=== PATIENT | female | born 1995 | race African-American/Black ===

== ENCOUNTER 2017-01-18 13:09 | Emergency (ER) | payer MEDICAID, OTHER ==
[2017-01-18] MEDS ORDERED: TYLENOL #3 PO ONE ×2 (18:53→18:58)
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
[2017-01-18] MEDS ORDERED: FLEXERIL ONE (18:55)
[2017-01-18] MEDS ORDERED: FLEXERIL PO ONE (18:58)
[2017-01-18 21:17] VITALS: BP 115/74
== END 2017-01-18 19:15 | disposition home or self-care (01) ==
LOC: ED 13:09
DX: O9A.212 Injury, poisoning and certain other consequences of external causes complicating pregnancy, second trimester (principal); S39.012A Strain of muscle, fascia and tendon of lower back, initial encounter; M79.601 Pain in right arm; Z3A.20 20 weeks gestation of pregnancy; K21.9 Gastro-esophageal reflux disease without esophagitis; V89.2XXA Person injured in unspecified motor-vehicle accident, traffic, initial encounter; Y93.89 Activity, other specified; Y99.8 Other external cause status; Y92.89 Other specified places as the place of occurrence of the external cause

== ENCOUNTER 2018-07-17 12:29 | Emergency (ER) | payer SELFPAY ==
[2018-07-17 15:10] VITALS: BP 113/61
--- NOTE | 2018-07-17 16:09 | Emergency Department Report ---
[facility] Chief Complaint: Eye Problems Stated Complaint: LEFT EYE RED,IRRITATION,BLURRY Time Seen by Provider: 07/17/18 15:59 Duration: 2 Days Side: Left Severity: moderate Symptoms: Yes Eye Itching, Yes Eye Redness, Yes Mucous Drainage, No Eye Pain, No Purulent Drainage, No Blurred Vision, No Preceding URI, No H/O Allergic Rhinitis, No Contact Lens Use, No Trauma, No Fever, No Headache ED Review of Systems ROS: Stated complaint: LEFT EYE RED,IRRITATION,BLURRY Other details as noted in HPI Comment: All other systems reviewed and negative ED Past Medical Hx - Past Medical History Hx Hypertension: No Hx Congestive Heart Failure: No Hx Diabetes: No Hx Deep Vein Thrombosis: No Hx GERD: Yes Hx Renal Disease: No Hx Sickle Cell Disease: No Hx Seizures: No Hx Asthma: No Hx COPD: No Hx HIV: No - Surgical History Additional Surgical History: - Social History Smoking Status: Never Smoker Substance Use Type: None - Medications Home Medications: Home Medications Medication Instructions Recorded Confirmed Last Taken Type Tablet 1 tab PO DAILY 11/03/15 01/18/17 01/17/17 20:00 History Acetaminophen [Non-Aspirin Pain 500 mg PO Q6H PRN #12 tablet 01/18/17 Unknown Rx Relief] Gentamicin 0.3% Ophth Soln 2 drops OP Q4H #1 bottle 07/17/18 Unknown Rx Naphazoline HCl/Pheniramine 2 drop OP Q6HR #15 ml 07/17/18 Unknown Rx [Naphcon-A Eye Drops] [facility] Exam - Exam General: Vital signs noted. No distress. Alert and acting appropriately. Eye Exam: Left Injection, Left Chemosis, Left Mucous Discharge, Both EOMI, Neither Abnormal Pupil, Neither Eye Foreign Body, Neither Lid Foreign Body, Neither Purulent Discharge, Neither Fluorescein Uptake, Neither Fluorescein Uptake (slit lamp), Neither Cell/Flare (slit lamp), Neither Corneal Edema, Neither Photophobia HEENT: No Nasal Congestion, No Pharyngeal Erythema Remainder of HEENT: Normal Lungs: Yes Clear Lung Sounds, Yes Good Air Exchange, No Cough, No Nasal Flaring , No Retractions, No Use of Accessory Muscles ED Course Vital Signs 07/17/18 15:06 Temperature 99 F Pulse Rate 88 Respiratory 16 Rate Blood Pressure 113/61 O2 Sat by Pulse 99 Oximetry Critical care attestation.: If time is entered above; I have spent that time in minutes in the direct care of this critically ill patient, excluding procedure time. ED Disposition Clinical Impression: Conjunctivitis Qualifiers: Conjunctivitis type: unspecified Laterality: left Qualified Code(s): H10.9 - Unspecified conjunctivitis Disposition: - TO HOME OR SELFCARE Is pt being admited?: No Does the pt Need Aspirin: No Condition: Stable Instructions: Conjunctivitis (ED) Prescriptions: Gentamicin 0.3% Ophth Soln 2 drops OP Q4H #1 bottle Naphazoline HCl/Pheniramine [Naphcon-A Eye Drops] 2 drop OP Q6HR #15 ml Time of Disposition: 16:09
== END 2018-07-17 16:21 | disposition home or self-care (01) ==
LOC: ED 12:29
DX: H10.9 Unspecified conjunctivitis (principal); K21.9 Gastro-esophageal reflux disease without esophagitis
CPT/HCPCS: 99282

== ENCOUNTER 2019-04-08 22:03 | Emergency (ER) | payer OTHER ==
[2019-04-08 22:18] VITALS: BP 114/63
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
[2019-04-09] MEDS ORDERED: ULTRAM PO ONE (02:55)
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
== END 2019-04-09 04:00 | disposition home or self-care (01) ==
LOC: ED 22:03
DX: S86.912A Strain of unspecified muscle(s) and tendon(s) at lower leg level, left leg, initial encounter (principal); S39.012A Strain of muscle, fascia and tendon of lower back, initial encounter; K21.0 Gastro-esophageal reflux disease with esophagitis; Z79.899 Other long term (current) drug therapy; V43.52XA Car driver injured in collision with other type car in traffic accident, initial encounter; Y93.89 Activity, other specified; Y92.488 Other paved roadways as the place of occurrence of the external cause; Y99.8 Other external cause status
CPT/HCPCS: 72100; 99284

== ENCOUNTER 2019-06-15 17:45 | Emergency (ER) | payer MEDICAID, OTHER ==
[2019-06-15 18:15] VITALS: BP 101/68
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
[2019-06-15] MEDS ORDERED: IBUPROFEN PO ONE (20:56)
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
== END 2019-06-15 21:36 | disposition home or self-care (01) ==
LOC: ED 17:45
DX: S46.911A Strain of unspecified muscle, fascia and tendon at shoulder and upper arm level, right arm, initial encounter (principal); K21.9 Gastro-esophageal reflux disease without esophagitis; Z98.890 Other specified postprocedural states; Z79.899 Other long term (current) drug therapy; V89.2XXA Person injured in unspecified motor-vehicle accident, traffic, initial encounter; Y93.89 Activity, other specified; Y92.488 Other paved roadways as the place of occurrence of the external cause; Y99.8 Other external cause status
CPT/HCPCS: 99284

== ENCOUNTER 2019-08-26 12:38 | Emergency (ER) | payer MEDICAID | END 2019-08-26 13:10 | disposition left against medical advice (07) | LOC: ED 12:38 | DX: M25.572 Pain in left ankle and joints of left foot (principal); Z53.21 Procedure and treatment not carried out due to patient leaving prior to being seen by health care provider ==

== ENCOUNTER 2019-12-07 05:58 | Emergency (ER) | payer MEDICAID ==
[2019-12-07 06:09] VITALS: BP 126/86
--- NOTE | 2019-12-07 06:47 | XRay Report ---
Right ankle, 3 views INDICATION: Pain following fall FINDINGS: The joint space is maintained. There is no fracture or dislocation. No spurring or arthriti c change. No bone lesion or periostitis. No significant abnormality. IMPRESSION: Negative study Signer Name: Zia Beltran MD Signed: 12/07/2019 6:43 AM Workstation Name: [id number]
--- NOTE | 2019-12-07 08:28 | Emergency Department Report ---
ED General Adult HPI - General Chief complaint: Extremity Injury, Lower Stated complaint: FALL/R ANKLE PAIN Time Seen by Provider: 12/07/19 08:16 Source: patient Mode of arrival: Wheelchair Limitations: Physical Limitation - History of Present Illness Initial comments: This is a 24-year-old healthy looking female who presents the ED complaining of right ankle pain status post twisting and tripping on 3 stairs around 1 AM this morning. Patient states she is having pain with applied pressure to that ankle. Patient denies any swelling, redness. Patient states that she is twisted this ankle in the past before.. Patient is ambulatory She denies falling or any head injury at the incident Radiation: non-radiation Severity scale (0 -10): 5 Quality: aching Consistency: constant Improves with: immobilization - Related Data Home Medications Medication Instructions Recorded Confirmed Last Taken Tablet 1 tab PO DAILY 11/03/15 09/12/18 01/17/17 20:00 Previous Rx's Medication Instructions Recorded Last Taken Type Acetaminophen [Non-Aspirin Pain 500 mg PO Q6H PRN #12 tablet 01/18/17 Unknown Rx Relief] Gentamicin 0.3% Ophth Soln 2 drops OP Q4H #1 bottle 07/17/18 Unknown Rx Naphazoline HCl/Pheniramine 2 drop OP Q6HR #15 ml 07/17/18 Unknown Rx [Naphcon-A Eye Drops] Ferrous Sulfate [Feosol 325 MG tab] 325 mg PO BID #60 tablet 09/12/18 Unknown Rx Vit-Fe Fumar-FA [ 1 each PO QDAY #30 tablet 09/12/18 Unknown Rx Vitamin] Cyclobenzaprine [Flexeril] 10 mg PO TID PRN #30 tablet 04/09/19 Unknown Rx Menthol/Camphor [[place] 1 applicatio TP QID PRN #1 tube 04/09/19 Unknown Rx Ointment] Naproxen [Naprosyn TAB] 500 mg PO BID PRN #30 tablet 04/09/19 Unknown Rx Menthol/Camphor [[place] 1 applicatio TP QID PRN #1 tube 06/15/19 Unknown Rx Ointment] Naproxen [Naprosyn] 500 mg PO BID PRN #30 tablet 06/15/19 Unknown Rx predniSONE [Deltasone] 40 mg PO QDAY 5 Days #10 tab 06/15/19 Unknown Rx Cyclobenzaprine [Flexeril 10 MG 10 mg PO QHS PRN #15 tablet 12/07/19 Unknown Rx TAB] Ibuprofen [Motrin 600 MG tab] 600 mg PO Q6H #30 tablet 12/07/19 Unknown Rx Allergies Allergy/AdvReac Type Severity Reaction Status Date / Time No Known Allergies Allergy Verified 01/18/17 13:47 ED Review of Systems ROS: Stated complaint: FALL/R ANKLE PAIN Other details as noted in HPI Comment: All other systems reviewed and negative ED Past Medical Hx - Past Medical History Previous Medical History?: Yes Hx Hypertension: No Hx Congestive Heart Failure: No Hx Diabetes: No Hx Deep Vein Thrombosis: No Hx GERD: Yes Hx Renal Disease: No Hx Sickle Cell Disease: No Hx Seizures: No Hx Asthma: No Hx COPD: No Hx HIV: No - Surgical History Past Surgical History?: Yes Additional Surgical History: - Social History Smoking Status: Never Smoker Substance Use Type: None - Medications Home Medications: Home Medications Medication Instructions Recorded Confirmed Last Taken Type Tablet 1 tab PO DAILY 11/03/15 09/12/18 01/17/17 20:00 History Acetaminophen [Non-Aspirin Pain 500 mg PO Q6H PRN #12 tablet 01/18/17 09/12/18 Unknown Rx Relief] Gentamicin 0.3% Ophth Soln 2 drops OP Q4H #1 bottle 07/17/18 09/12/18 Unknown Rx Naphazoline HCl/Pheniramine 2 drop OP Q6HR #15 ml 07/17/18 09/12/18 Unknown Rx [Naphcon-A Eye Drops] Ferrous Sulfate [Feosol 325 MG tab] 325 mg PO BID #60 tablet 09/12/18 Unknown Rx Vit-Fe Fumar-FA [ 1 each PO QDAY #30 tablet 09/12/18 Unknown Rx Vitamin] Cyclobenzaprine [Flexeril] 10 mg PO TID PRN #30 tablet 04/09/19 Unknown Rx Menthol/Camphor [[place] 1 applicatio TP QID PRN #1 tube 04/09/19 Unknown Rx Ointment] Naproxen [Naprosyn TAB] 500 mg PO BID PRN #30 tablet 04/09/19 Unknown Rx Menthol/Camphor [[place] 1 applicatio TP QID PRN #1 tube 06/15/19 Unknown Rx Ointment] Naproxen [Naprosyn] 500 mg PO BID PRN #30 tablet 06/15/19 Unknown Rx predniSONE [Deltasone] 40 mg PO QDAY 5 Days #10 tab 06/15/19 Unknown Rx Cyclobenzaprine [Flexeril 10 MG 10 mg PO QHS PRN #15 tablet 12/07/19 Unknown Rx TAB] Ibuprofen [Motrin 600 MG tab] 600 mg PO Q6H #30 tablet 12/07/19 Unknown Rx ED Physical Exam - General Limitations: Physical Limitation General appearance: alert, in no apparent distress - Head Head exam: Present: atraumatic, normocephalic - Eye Eye exam: Present: normal appearance - ENT ENT exam: Present: mucous membranes moist - Neck Neck exam: Present: normal inspection - Respiratory Respiratory exam: Present: normal lung sounds bilaterally. Absent: respiratory distress - Cardiovascular Cardiovascular Exam: Present: regular rate, normal rhythm. Absent: systolic murmur, diastolic murmur, rubs, gallop - GI/Abdominal GI/Abdominal exam: Present: soft, normal bowel sounds - Extremities Exam Extremities exam: Present: normal inspection, full ROM, tenderness (To palpation of the lateral aspect of the ankle right, no swelling noted no erythema no laceration), normal capillary refill. Absent: pedal edema, joint swelling - Back Exam Back exam: Present: normal inspection - Neurological Exam Neurological exam: Present: alert, oriented X3 - Psychiatric Psychiatric exam: Present: normal affect, normal mood - Skin Skin exam: Present: warm, dry, intact, normal color. Absent: rash ED Course Vital Signs 12/07/19 06:07 Temperature 97.9 F Pulse Rate 76 Respiratory 20 Rate Blood Pressure 126/86 O2 Sat by Pulse 100 Oximetry ED Medical Decision Making - Radiology Data Radiology results: report reviewed, image reviewed INDICATION: Pain following fall FINDINGS: The joint space is maintained. There is no fracture or dislocation. No spurring or arthritic change. No bone lesion or periostitis. No significant abnormality. IMPRESSION: Negative study Signer Name: Zia Beltran MD Signed: 12/07/2019 6:43 AM Workstation Name: [id number] Transcribed By: AMY Dictated By: Zia Beltran MD Electronically Authenticated By: Zia Beltran MD Signed Date/Time: 12/07/19 0643 - Medical Decision Making This 24-year-old female presented with an ankle sprain Ankle was Jose wrapped. Discussed rice protocol with patient. Discussed with patient to elevate and apply ice Discussed follow-up with primary care physician. Vital signs are normal patient is in no acute distress. Patient was ambulatory when observed. Normal gait with a little bit of a limp. Critical care attestation.: If time is entered above; I have spent that time in minutes in the direct care of this critically ill patient, excluding procedure time. ED Disposition Clinical Impression: Right ankle sprain, Ankle pain, right Disposition: [id number] TO HOME OR SELFCARE Is pt being admited?: No Does the pt Need Aspirin: No Condition: Stable Instructions: Ankle Sprain (ED), Arthralgia (ED) Additional Instructions: Make sure to follow up with the primary care physician as discussed. Take all your medications as you've been prescribed. If you have any worsening symptoms or develop new symptoms please return to ED immediately. Prescriptions: Cyclobenzaprine [Flexeril 10 MG TAB] 10 mg PO QHS PRN #15 tablet PRN Reason: Muscle Spasm Ibuprofen [Motrin 600 MG tab] 600 mg PO Q6H #30 tablet Referrals: [facility] [Outside] - 3-5 Days [facility] [Outside] - 3-5 Days Forms: Work/School Release Form(ED) Time of Disposition: 08:30
== END 2019-12-07 09:05 | disposition home or self-care (01) ==
LOC: ED 05:58
DX: S93.401A Sprain of unspecified ligament of right ankle, initial encounter (principal); K21.9 Gastro-esophageal reflux disease without esophagitis; Z98.890 Other specified postprocedural states; Z79.1 Long term (current) use of non-steroidal anti-inflammatories (NSAID); Z79.899 Other long term (current) drug therapy; W10.9XXA Fall (on) (from) unspecified stairs and steps, initial encounter; Y93.89 Activity, other specified; Y92.89 Other specified places as the place of occurrence of the external cause; Y99.8 Other external cause status